=== PATIENT | male | born 1980 | race Caucasian/White ===

== ENCOUNTER → 2023-11-21 | Outpatient (CLI) | payer BC ==
--- NOTE | 2023-12-19 12:52 | US ---
Peter Peterson ID: [id number] : 1980 EXAMINATION TYPE: US liver DATE OF EXAM: 11/21/2023 Comparison: None Clinical History: 43-year-old female abnormal labs TECHNIQUE: Multiple sonographic images of the right upper quadrant are obtained. FINDINGS: [place] notes: Limitations due to bowel gas shadowing. Liver is enlarged at 18.8 cm. Severely echogenic and markedly attenuating. This secondarily limits as sessment for focal lesions. No abnormal gallbladder distention, wall thickening, pericholecystic fluid, or shadowing calculi. A p hrygian cap is noted. Bile duct normal caliber at 4 mm. Right kidney measures 11.7 cm without hydronephrosis. Unable to visualize the pancreas due to shadowing from bowel gas. Impression: 1. Hepatomegaly with severe hepatic steatosis. Appropriate clinical management is advised. 2. No gallstones or biliary ductal dilatation.
== END | disposition home or self-care (01) ==
LOC: RADUSWWP 18:22
PROVIDERS: ATTEND Family Medicine
DX: K76.0 Fatty (change of) liver, not elsewhere classified (principal); R74.01 Elevation of levels of liver transaminase levels
CPT/HCPCS: 76705